=== PATIENT | female | born 1980 | race Caucasian/White ===

== ENCOUNTER 2023-02-12 12:53 | Inpatient (IN) | payer OTHER ==
[~2023-02-12] VITALS: Ht 162.6 cm; Wt 70.3 kg
[~2023-02-12 12:53] MED LIST: MEDROLPACK PO
[2023-02-23] MEDS ORDERED: PRENATAL TABLE1 EAC1 PO (06:57)
== END 2023-02-25 13:44 | disposition home or self-care (01) | DRG 807 ==
LOC: LDR 02-23 05:50 → OB/GYN 02-23 13:30 → LDR 02-23 13:59 → OB/GYN 02-23 16:24
PROVIDERS: ADMIT Obstetrics & Gynecology; ATTEND Obstetrics & Gynecology
PROC: 10D07Z6 Extraction of Products of Conception, Vacuum, Via Natural or Artificial Opening (ICD-10-PCS; principal; 2023-02-23)
PROC: 0W8NXZZ Division of Female Perineum, External Approach (ICD-10-PCS; 2023-02-23)
PROC: 3E033VJ Introduction of Other Hormone into Peripheral Vein, Percutaneous Approach (ICD-10-PCS; 2023-02-23)
PROC: 3E0P7VZ Introduction of Hormone into Female Reproductive, Via Natural or Artificial Opening (ICD-10-PCS; 2023-02-23)
PROC: 4A1HXCZ Monitoring of Products of Conception, Cardiac Rate, External Approach (ICD-10-PCS; 2023-02-23)
DX: O66.5 Attempted application of vacuum extractor and forceps (principal); Z37.0 Single live birth; Z3A.39 39 weeks gestation of pregnancy; Z20.822 Contact with and (suspected) exposure to COVID-19

== ENCOUNTER 2023-02-19 13:20 | Outpatient (CLI) | payer OTHER | END 2023-02-19 13:53 | disposition home or self-care (01) | LOC: NST 13:20 | PROVIDERS: ATTEND Obstetrics & Gynecology Maternal & Fetal Medicine | DX: Z34.83 Encounter for supervision of other normal pregnancy, third trimester (principal) ==

== ENCOUNTER 2025-04-28 09:27 | Outpatient (CLI) | payer OTHER ==
[~2025-04-28 09:27] MED LIST changes: +PRENATAL TABLE1 EAC1 PO
== END 2025-04-28 09:33 | disposition home or self-care (01) ==
LOC: SONOGRAMA 09:27
PROVIDERS: ATTEND Obstetrics & Gynecology Gynecology
DX: N63 Unspecified lump in breast (principal); N64.4 Mastodynia; N60.11 Diffuse cystic mastopathy of right breast